=== PATIENT | female | born 1975 | race Caucasian/White ===

== ENCOUNTER → 2017-06-27 | Outpatient (CLI) | payer BC ==
[~2017-06-27] MED LIST: ASPIRIN EC325 MG PO; ELAVIL25 MG PO; FLUOXETINE HCL20 MG PO; FLUOXETINE HCL40 MG PO; INDERAL XL80 MG PO; LEVOTHYROXINE100 MCG PO; PRILOSEC20 MG PO; VENTOLIN HFA18 GM IH; ZONEGRAN25 MG PO
[2017-06-27 16:56] LABS: APPEARANCE CLEAR/COLORLESS; RED CELL AREA COUNTED 18; RED CELL COUNT 0 /MM^3 (0-1); RED CELL DILUTION 1; WBC DILUTION 1; WHITE CELL RAW COUNT 1
[2017-06-27 16:57] LABS: WBC AREA COUNTED 18; WHITE CELL COUNT 1 /MM^3 (0-5)
[2017-06-27 16:59] LABS: CSF EOSINOPHILS 0 % (0-25); MONO RAW COUNT 19; MONONUCLEAR WBC'S 100 % (50-90); POLYNUCLEAR WBC'S 0 % (0-3)
== END | disposition home or self-care (01) ==
LOC: RAD 14:39
PROVIDERS: Specialist
PROC: 009U3ZZ Drainage of Spinal Canal, Percutaneous Approach (ICD-10-PCS; principal; 2017-06-27)
DX: H47.11 Papilledema associated with increased intracranial pressure (principal)
CPT/HCPCS: 62270; 77003; 82945; 83916 90; 84157; 87070; 87102; 87205; 87210; 88108; 89051